=== PATIENT | male | born 1985 | race Caucasian/White ===

== ENCOUNTER 2017-04-04 09:53 | Emergency (ER) | payer OTHER ==
[~2017-04-04] VITALS: Ht 188 cm; Wt 74.5 kg
[~2017-04-04 09:53] MED LIST: ADVIL,NUPRIN,M200 MG PO; FLEXERIL10 MG PO; FLEXERIL5 MG PO; MOTRIN800 MG PO; NAPROSYN500 MG PO; PERCOCET 5/31 TABLET PO; PREDNISONE20 MG PO; ROBITUSSIN AC,T10 ML PO; VENTOLIN HFA18 GM IH; ZOFRAN4 MG PO
[2017-04-04] MEDS ORDERED: FLEXERIL10 MG PO (10:49)
[2017-04-04] MEDS ORDERED: MOTRIN800 MG PO (10:49)
[2017-04-04 11:02] VITALS: BP 116/81
== END 2017-04-04 12:29 | disposition home or self-care (01) ==
LOC: EME 09:53
DX: M54.42 Lumbago with sciatica, left side (principal); S39.012A Strain of muscle, fascia and tendon of lower back, initial encounter; X58.XXXA Exposure to other specified factors, initial encounter; F17.200 Nicotine dependence, unspecified, uncomplicated
CPT/HCPCS: 99281; 99283; J1100; J1885